=== PATIENT | female | born 1955 | race Caucasian/White ===

== ENCOUNTER 2019-06-29 11:53 | Outpatient (CLI) | payer MEDICARE, MEDICAID, SELFPAY ==
--- NOTE | ~2019-06-29 | MMUS_ITS ---
EXAMINATION: MM diagnostic radha BI w galo, US breast RT limited HISTORY: Right breast lump TECHNIQUE: ML, MLO and cc 3-D full-field tomosynthesis images of both breasts and spot Tomosynthesis images of the right breast were performed and synthetic 2-D images were generated. CAD analysis was s ubmitted and interpreted. High resolution breast ultrasound was performed. COMPARISON: 09/27/2017, 08/09/2016, 08/10/2014 bilateral digital screening mammogram examinations bilater al digital screening mammogram BREAST PARENCHYMAL COMPOSITION: The breasts are heterogeneously dense, which may obscure small masses . FINDINGS: MAMMOGRAPHIC FINDINGS: New spiculated mass is noted in the outer mid right breast. Otherwise no suspicious mass, architectural distortion, malignant calcification, skin thickening or r etraction or significant new or developing density of either breast is evident. ULTRASOUND: There is an irregular hypoechoic mass at 7:00 4 cm from the nipple, with posterior shadowing. The mas s measures up to 2.5 x 1.9 x 2.6 cm approximate dimension. This is highly suggestive of malignancy. A ppropriate action should be taken. IMPRESSION: 1. Up to 2.6 cm irregular mass at 7:00 4 cm from nipple, highly suggestive of malignancy 2. Right breast 7:00 mass ultrasound -guided biopsy is recommended. BI-RADS category 5, highly suggestive of malignancy. Dr. Pineda telephoned on 06/29/2019 at 1330 hours the report and ultrasound guided biopsy recommendation to voicemail at extension 140 at [phone] Reviewed, dictated and finalized at location A. IMPRESSION: 1. Up to 2.6 cm irregular mass at 7:00 4 cm from nipple, highly suggestive of m alignancy 2. Right breast 7:00 mass ultrasound -guided biopsy is recommended. BI-RADS category 5, highly suggestive of malignancy. Dr. Pineda telephoned on 06/29/2019 at 1330 hours the report and ultrasound guided biopsy recommendation to voicemail at extension 140 at [phone] IMPRESSION: 1. Up to 2.6 cm irregular mass at 7:00 4 cm from nipple, highly suggestive of m alignancy 2. Right breast 7:00 mass ultrasound -guided biopsy is recommended. BI-RADS category 5, highly suggestive of malignancy. Dr. Pineda telephoned on 06/29/2019 at 1330 hours the report and ultrasound guided biopsy recommendation to voicemail at extension 140 at [phone]
== END 2019-06-29 11:54 | disposition home or self-care (01) ==
LOC: ANHIMG 12:09
PROVIDERS: PCP Internal Medicine; Visit Provider Nurse Practitioner Obstetrics & Gynecology
DX: N64.4 Mastodynia (principal); N63.10 Unspecified lump in the right breast, unspecified quadrant; R92.8 Other abnormal and inconclusive findings on diagnostic imaging of breast
CPT/HCPCS: 76642; 77062; 77066; G0279

== ENCOUNTER 2020-12-10 15:21 | Outpatient (CLI) | payer MEDICARE, MEDICAID, SELFPAY ==
--- NOTE | ~2020-12-10 | XR_ITS ---
XR shoulder RT min 2V 12/10/2020 15:59 INDICATION: Right shoulder pain PROCEDURE: 4 views right shoulder COMPARISON: No prior studies for comparison. FINDINGS: Fracture, dislocation or subluxation is not identified. The soft tissues appear within norm al limits. No foreign bodies are identified. IMPRESSION: 1: NO ACUTE BONE OR JOINT ABNORMALITY IDENTIFIED. Reviewed, dictated and finalized at location B.
--- NOTE | ~2020-12-10 | XR_ITS ---
EXAMINATION: XR wrist RT min 3V DATE: 12/10/2020 16:00 INDICATION: Medial right wrist pain TECHNIQUE: Posteroanterior, ulnar deviation, oblique, and lateral views of the right wrist were obtai shimon. COMPARISON: none FINDINGS: Bone alignment is normal. No fracture. Polyarticular osteoarthritis, severe at the first interphalang eal joint, mild at the first carpometacarpal and first metacarpophalangeal joint. Mild to moderate po lyarticular osteoarthritis suggested at the interphalangeal joints with distal predominance however t he joint spaces are poorly profiled with the finger is flexed on the dorsal palmar projection. No cor tical erosions. Prominent soft tissue swelling at the ulnar side of the wrist with convex contour to the soft tissue density overlying the extensor carpi ulnaris groove. IMPRESSION: 1. No acute osseous abnormality. 2. 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 3. Soft tissue swelling overlying the extensor carpi ulnaris groove which could be seen with tenosyno vitis and/or tendinopathy of the extensor carpi ulnaris tendon. Reviewed, dictated and finalized at location A. IMPRESSION: 1. No acute osseous abnormality. 2. Polyarticular osteoarthritis in the right hand, severe at the first interpha langeal joint, mild at the first carpometacarpal and likely mild to moderate at a few additional interphalangeal joints. 3. Soft tissue swelling overlying the extensor carpi ulnaris groove which could be seen with tenosynovitis and/or tendinopathy of the extensor carpi ulnaris t endon.
== END 2020-12-10 15:22 | disposition home or self-care (01) ==
LOC: ANHIMG 15:26
PROVIDERS: PCP Internal Medicine; Visit Provider Internal Medicine
DX: M25.519 Pain in unspecified shoulder (principal); M25.539 Pain in unspecified wrist; M19.031 Primary osteoarthritis, right wrist; M79.89 Other specified soft tissue disorders
CPT/HCPCS: 73030; 73110

== ENCOUNTER 2022-05-26 07:43 | Outpatient (RCR) | payer MEDICARE, MEDICAID, SELFPAY ==
--- NOTE | 2022-05-27 18:16 | PTOPEVAL1 ---
Assessment and note entered by Catrachito Joya, PT Evaluation Information Assessment Status Evaluation Diagnosis B.P.P.V. Subjective Information Patient reports the end of March she was getting out of bed and experienced severe vertigo with nausea. Since then she is still having trouble getting in and out of bed and rolling side to side in bed. She has not been given meclizine, but given Valium which she is unable to take with her pain medications. She has had headaches and ringing in her ears. Assessment PT Clinical Summary Jacqueline is a 66 year old female coming into the clinic for BPPV. She trouble with vertical head or eye movement and exhibits nystagmus with R [place] Hallpike. Physical therapy will continue to work on habituation exercises along with the Shon Maneuver to reposition the crystals in the vestibular system. Will have to be careful with cervical issues. Plan of Care Interventions Electrical Stimulation,Gait Training,Hot Pack/Cold Pack,Manual Therapy,Neuro Re-education,Patient/ Caregiver Education,Therapeutic Activities, Therapeutic Exercise,Ultrasound Other Interventions taping, cupping, IASTM PT Services Indicated Yes Treatment Frequency and 1-2x/wk for 4 weeks Duration These treatments will address the objective and functional deficits as defined above. The patient will be advanced safely and appropriately in order for the patient to progress towards his/her prior level of function. Additional exercises will be introduced and as well as a comprehensive home exercise program upon discharge, if needed, ?to ensure carryover of functional gains achieved in the clinic. This treatment plan has been reviewed and agreement upon by the patient.
--- NOTE | 2022-06-17 13:05 | PCPTNOTE ---
Patient called & cancelled all of her scheduled appointment this date, no reason given.
--- NOTE | 2022-07-29 09:53 | PTOPDC ---
Assessment and note entered by Catrachito Joya, PT Evaluation Information Assessment Status Discharge - Pt Not Present Diagnosis B.P.P.V. Subjective Information Patient called and cancelled all of her remaining appointments on 06/17/22. No reason given for canceling all appointments Assessment PT Clinical Summary Jacqueline is a 66 year old female coming into the clinic for BPPV. She trouble with vertical head or eye movement and exhibits nystagmus with R [place] Hallpike. Physical therapy will continue to work on habituation exercises along with the Shon Maneuver to reposition the crystals in the vestibular system. Will have to be careful with cervical issues. Plan of Care PT Services Indicated Yes
== END 2022-07-30 08:38 | disposition home or self-care (01) ==
LOC: ANHPT 07:43
PROVIDERS: PCP Internal Medicine; Visit Provider Nurse Practitioner Family
DX: H81.10 Benign paroxysmal vertigo, unspecified ear (principal)
CPT/HCPCS: 97110; 97161

== ENCOUNTER → 2022-06-22 16:12 | Outpatient (CLI) | payer MEDICARE, MEDICAID, SELFPAY ==
--- NOTE | ~2022-06-22 | MR_ITS ---
MRI of the lumbar spine Clinical History: Back pain Technique: Axial T2-weighted images, and sagittal T1-weighted, T2-weighted, and T2 fat-sat images wer e acquired. Findings: Possible unilateral left L5 pars interarticularis defect noted. There is 4 mm anterolisthes is of L5 over S1. No other fracture or subluxation seen in the lumbar spine. There are reactive marro w signal changes about the T12-L1 disc space due to underlying degenerative disc disease. At L1-L2, there is no disc bulge or herniation. There is mild facet arthropathy. No spinal canal sten osis or neural foraminal narrowing. At L2-L3, there is minimal disc bulge with mild facet arthropathy. No spinal canal stenosis or neural foraminal narrowing. At L3-L4, there is minimal disc bulge and mild facet arthropathy. No spinal canal stenosis or definit e neural foraminal narrowing. At L4-L5, there is minimal disc bulge. There is minimal facet arthropathy. No spinal canal stenosis o r tiny neural foraminal narrowing. At L5-S1, there is disc bulge/uncovering with advanced facet arthropathy. No spinal canal stenosis. T here is mild to moderate bilateral neural foraminal narrowing. Paravertebral soft tissues are unremarkable. Impression: Suspected unilateral left L5 pars interarticularis defect with 4 mm anterolisthesis of L5 over S1. Mild to moderate bilateral neural foraminal narrowing at L5-S1. Additional minimal degenerative changes, as above. Reviewed, dictated and finalized at [facility]. Impression: Suspected unilateral left L5 pars interarticularis defect with 4 mm anterolisth esis of L5 over S1. Mild to moderate bilateral neural foraminal narrowing at L5-S1. Additional minimal degenerative changes, as above.
--- NOTE | ~2022-06-22 | XR_ITS ---
EXAM: XR thoracic spine 3V DATE: 06/22/2022 16:25 HISTORY: BILATERAL THORACIC PAIN . COMPARISON: None available. FINDINGS: Cholecystectomy clips Osteopenia. Vertebral body alignment intact. Mild scoliosis. Mild ex aggeration of the thoracic kyphosis. Mild anterior wedge deformity in the midthoracic spine, likely T 7 and T8. Multilevel moderate disc space narrowing and marginal osteophytosis. No traumatic malalignm ent or fracture. Visualized lung parenchyma is clear. Diffuse reticular opacities in the lungs. IMPRESSION: Acute versus chronic mild wedge compression fractures at the mid thoracic spine, likely T 7 and T8, correlate with pain/tenderness. Multilevel moderate degenerative disc disease. Pulmonary op acities may represent interstitial edema versus chronic interstitial lung disease, consider high-reso lution CT of the chest. Reviewed, dictated and finalized at location K. IMPRESSION: Acute versus chronic mild wedge compression fractures at the mid th oracic spine, likely T7 and T8, correlate with pain/tenderness. Multilevel mode rate degenerative disc disease. Pulmonary opacities may represent interstitial edema versus chronic interstitial lung disease, consider high-resolution CT of the chest.
--- NOTE | ~2022-06-22 | MR_ITS ---
MRI of the cervical spine Clinical History: Pain Technique: Axial T2-weighted and gradient images, and sagittal T1-weighted, T2-weighted, and STIR tonia ges were acquired. Findings: There is no fracture or subluxation of cervical spine. There is straightening of the normal cervical lordosis. Vertebral bodies otherwise maintain normal height and alignment. There are mild r eactive marrow signal changes due to areas of degenerative disc disease. No suspicious bone marrow si gnal abnormality seen. At C2-C3, there is no disc bulge or herniation. There is mild left facet arthropathy. No spinal canal stenosis, cord compression, or definite neural foraminal narrowing. At C3-C4, there is no significant disc bulge or herniation. There is bilateral neural foraminal narro wing related to facet arthropathy, left worse than right. At C4-C5, there is minimal disc bulge. There is bilateral neural foraminal narrowing related to facet arthropathy. At C5-C6, there is severe degenerative disc narrowing. Disc osteophyte complex results in mild canal stenosis and cord compression. There is severe bilateral neural foraminal narrowing with facet arthro malik bilaterally. At C6-C7, there is severe degenerative disc narrowing. Small disc osteophyte complex results in mild canal stenosis without tiny cord compression. There is bilateral neural foraminal narrowing. No abnormal signal seen in the spinal cord. Paravertebral soft tissues are unremarkable. Impression: Mild canal stenosis and cord compression at C5-C6 related to disc osteophyte complex. Additional facet arthropathy and disc osteophyte complexes in the cervical spine result in multileve l neural foraminal narrowing, as detailed above. Reviewed, dictated and finalized at [facility]. Impression: Mild canal stenosis and cord compression at C5-C6 related to disc osteophyte co mplex. Additional facet arthropathy and disc osteophyte complexes in the cervical spi ne result in multilevel neural foraminal narrowing, as detailed above.
== END ==
PROVIDERS: PCP Pain Medicine Pain Medicine; Visit Provider Pain Medicine Pain Medicine
DX: M54.12 Radiculopathy, cervical region (principal); M54.16 Radiculopathy, lumbar region; M48.02 Spinal stenosis, cervical region; M25.78 Osteophyte, vertebrae
CPT/HCPCS: 72072; 72141; 72148

== ENCOUNTER 2022-09-28 09:39 | Outpatient (CLI) | payer MEDICARE, MEDICAID, SELFPAY ==
--- NOTE | ~2022-09-28 | DEXA_ITS ---
Bone Density Report Name: JAQUELIN GONZALEZ Age: 67 Sex: Female Ethnicity: White Date of : 1955 Indication: postmenopausal; screening for osteoporosis; height loss; prior fracture; cancer; hysterectomy; Referring Provider: RADHA COTTON Study: Bone densitometry was performed. Exam Date: September 28, 2022 Accession number: [id number] Bone Density: Region BMD T-score Z-score Classification AP Spine(L1-L4) 0.983 -0.6 1.5 Normal Femoral Neck (Left) 0.743 -1.0 0.8 Normal Total Hip (Left) 0.930 -0.1 1.3 Normal Femoral Neck (Right) 0.718 -1.2 0.6 Osteopenia Total Hip (Right) 0.862 -0.7 0.8 Normal Total Hip Mean 0.896 -0.4 1.1 Normal World Health Organization criteria for BMD impression classify patients as: Normal (T-score at or above -1.0), Osteopenia (T-score between -1.0 and -2.5), or Osteoporosis (T-score at or below -2.5). 10-year Fracture Risk: FRAX not reported because: Prior hip or vertebral fracture Previous Exams: Region Exam Age BMD T-score BMD Change BMD Change Date g/cm2 vs Baseline vs Previous AP Spine (L1-L4) 09/28/2022 67 0.983 -0.6 -0.039 (-3.8%) -0.039 (-3.8%) 08/09/2016 60 1.023 -0.2 Total Hip(Left) 09/28/2022 67 0.930 -0.1 -0.122 (-11.6% -0.122 (-11.6% 08/09/2016 60 1.051 0.9 Total Hip(Right) 09/28/2022 67 0.862 -0.7 -0.142 (-14.2% -0.142 (-14.2% 08/09/2016 60 1.005 0.5 *Denotes significance at 95% confidence level, LSC for AP Spine = 0.022 g/cm2, LSC for Total Hip = 0.027 g/cm2 Clinical Information Provided by Patient: Have had a previous hip or vertebral fracture Has had a low trauma fracture Has used the following medications: Vitamin D, Calcium Has the following medical conditions: Cancer, Hysterectomy Patient maximum height was 65 Menopause Age: 48 Does not regularly consume dairy products Drinks caffeinated beverages Onset of menses at age 12 Number of children 1 Impression: The patient has low bone mass, based on the Right Femoral Neck T-score. The patient has risk factors, including: previous fracture. The BMD for the AP Spine (L1-L4) decreased, changing by -3.8% since the last DXA exam. The BMD for the Total Hip(Left) decreased, changing by -11.6% since the last DXA exam. The BMD for the Total Hip(Right) decreased, changing by -14.2% since the last DXA exam. Discussion: INCREASED RISK OF FRACTURE DUE TO HISTORY OF FRACTURE. The patient's previous fracture puts the patient at high r
== END 2022-09-28 09:40 | disposition home or self-care (01) ==
PROVIDERS: PCP Family Medicine; Visit Provider Family Medicine
DX: M48.50XA Collapsed vertebra, not elsewhere classified, site unspecified, initial encounter for fracture (principal); M85.851 Other specified disorders of bone density and structure, right thigh
CPT/HCPCS: 77080